=== PATIENT | male | born 1955 | race Caucasian/White ===

== ENCOUNTER 2016-05-30 22:58 | Emergency (ER) | payer BC ==
[~2016-05-30] VITALS: Ht 182.9 cm; Wt 104.3 kg
--- NOTE | 2016-05-30 23:04 | ED.ADGEN ---
Past History Past Medical History: CAD, Diabetes, High Cholesterol, Heart Disease, Hypertension Past Surgical History: Angioplasty, Other Adult General Chief Complaint Chief Complaint ".. I was just siting around... and started getting this really heavy .. aching chest pain.. a 11/02.. it radiated into my Lt shoulder.. I was really sweating.. I did take two nitro .. it helped .. but it has never gone away....I had Stents in [address] Rodriguez....".. " I get all my cardiac care at .. and that where I want to be transfer....." HPI HPI Patient is a 60 year old male who presents with above hx and complaints of central chest pain which radiates to left shoulder and arm. Patient states acute onset of pain at 2100 hrs. tonight. Has had mild resolution with 2 nitroglycerin. Pain has persisted at least 5 out of 10 lower since 2100 hrs. Patient did have since [place] [address] Rodriguez. Patient is a diabetic, has hypertension, elevated cholesterol. Pt. normally follow s with Dr. Alford and Dr. Rodriguez for cardiology. No recent travel. No ill contacts. No change in meds. No history of bad food. No history of trauma. Review of Systems Review of Systems Constitutional: Denies fever or chills [] Eyes: Denies change in visual acuity, redness, or eye pain [] HENT: Denies nasal congestion or sore throat [] Respiratory: History of nonproductive cough and shortness of breath [] Cardiovascular: No additional information not addressed in HPI [] GI: Denies abdominal pain, , vomiting, bloody stools or diarrhea [] complaints of nausea : Denies dysuria or hematuria [] Musculoskeletal: Denies back pain or joint pain [] Integument: Denies rash or skin lesions [] Neurologic: Denies headache, focal weakness or sensory changes [] Endocrine: Denies polyuria or polydipsia [] Family History Family History Noncontributory Current Medications Current Medications Current Medications Medications (Trade) Dose Ordered Sig/Mariana Start Time Stop Time Status Last Admin Dose Admin Aspirin (Children'S Aspirin) 324 mg 1X ONCE 05/30/16 23:45 05/30/16 23:46 DC 05/30/16 23:44 324 MG Enoxaparin Sodium (Lovenox 100mg Syringe) 100 mg 1X ONCE 05/30/16 23:15 05/30/16 23:45 DC 05/30/16 23:15 100 MG Lactated Ringer's (Iv Lactated Ringers) 1,000 ml @ 1,000 mls/hr ONCE ONCE 05/30/16 23:42 05/31/16 00:41 DC 05/30/16 23:42 1,000 MLS/HR Magnesium Sulfate (Magnesium Sulfate PREMIX 2GM) 50 ml @ 25 mls/hr 1X ONCE 05/31/16 00:30 05/31/16 02:29 05/31/16 00:30 25 MLS/HR Metoprolol Tartrate 5 mg 5 mg 1X ONCE 05/31/16 00:30 05/31/16 01:03 DC 05/31/16 00:30 5 MG Morphine Sulfate (Morphine 10mg Syringe) 10 mg 1X ONCE 05/31/16 00:30 05/31/16 00:31 DC Morphine Sulfate (Morphine 2mg Syringe) 2 mg 1X ONCE 05/30/16 23:30 05/30/16 23:43 DC 05/30/16 23:30 2 MG Nitroglycerin (Nitro-Bid Oint) 1 inch 1X ONCE 05/30/16 23:15 05/30/16 23:43 DC 05/30/16 23:15 1 INCH Ondansetron HCl 8 mg 8 mg 1X ONCE 05/30/16 23:30 05/30/16 23:43 DC 05/30/16 23:30 8 MG Allergies Allergies Allergies Coded Allergies Type Severity Reaction Last Updated Verified No Known Drug Allergies 05/30/16 No Physical Exam Physical Exam Constitutional: in acute distress, non-toxic appearance. [] HENT: Normocephalic, atraumatic, bilateral external ears normal, oropharynx moist, no oral exudates, nose normal. [] Eyes: PERRLA, EOMI, conjunctiva normal, no discharge. [] Neck: Normal range of motion, no tenderness, supple, no stridor. [] Cardiovascular: Tachycardia Heart rate regular rhythm, no murmur, PMI to the left Lungs & Thorax: Bilateral breath sounds equal apex with scattered wheezes and some basilar crackles on left on auscultation [] Abdomen: Bowel sounds normal, soft, no tenderness, no masses, no pulsatile masses. Obese. Skin: Warm, diaphoretic, no erythema, no rash. [] Back: No tenderness, no CVA tenderness. [] Extremities: No tenderness, no cyanosis, no clubbing, ROM intact, trace ankle edema. No cording appreciated Neurologic: Alert and oriented X 3, normal motor function, normal sensory function, no focal deficits noted. [] Psychologic: Affect anxious, judgement normal, mood normal. [] Current Patient Data Vital Signs Vital Signs Date Time Temp Pulse Resp B/P Pulse Ox O2 Delivery O2 Flow Rate FiO2 05/31/16 00:30 111 126/74 05/31/16 00:30 26 93 Nasal Cannula Lab Results Laboratory Tests Test 05/30/16 23:25 White Blood Count 9.8x10^3/uL (4.0-11.0) Red Blood Count 4.87x10^6/uL (4.30-5.70) Hemoglobin 14.3g/dL (13.0-17.5) Hematocrit 42.8% (39.0-53.0) Mean Corpuscular Volume 88fL (79-100) Mean Corpuscular Hemoglobin 29pg (25-35) Mean Corpuscular Hemoglobin Concent 33g/dL (31-37) Red Cell Distribution Width 13.6% (11.5-14.5) Platelet Count 238x10^3/uL (140-400) Neutrophils (%) (Auto) 65% (31-73) Lymphocytes (%) (Auto) 24% (24-48) Monocytes (%) (Auto) 9% (0-9) Eosinophils (%) (Auto) 2% (0-3) Basophils (%) (Auto) 1% (0-3) Neutrophils # (Auto) 6.3x10^3uL (1.8-7.7) Lymphocytes # (Auto) 2.3x10^3/uL (1.0-4.8) Monocytes # (Auto) 0.9x10^3/uL (0.0-1.1) Eosinophils # (Auto) 0.2x10^3/uL (0.0-0.7) Basophils # (Auto) 0.1x10^3/uL (0.0-0.2) Prothrombin Time 10.4SEC (9.4-11.4) Prothrombin Time INR 1.0 (0.9-1.1) PTT 22SEC (23-33) L D-Dimer (Lorraine) < 0.19mg/L (0.00-0.50) Sodium Level 139mmol/L (136-145) Potassium Level 3.7mmol/L (3.5-5.1) Chloride Level 103mmol/L (98-107) Carbon Dioxide Level 25mmol/L (21-32) Anion Gap 11 (6-14) Blood Urea Nitrogen 14mg/dL (8-26) Creatinine 1.1mg/dL (0.7-1.3) Estimated GFR (Cockcroft-Gault) 68.5 Glucose Level 382mg/dL (70-99) H Calcium Level 8.8mg/dL (8.5-10.1) Magnesium Level 1.7mg/dL (1.8-2.4) L Total Bilirubin 0.3mg/dL (0.2-1.0) Direct Bilirubin 0.1mg/dL (0.0-0.2) Aspartate Amino Transferase (AST) 18U/L (15-37) Alanine Aminotransferase (ALT) 42U/L (16-63) Alkaline Phosphatase 113U/L (46-116) Creatine Kinase 135U/L (39-308) Creatine Kinase MB (Mass) 1.8ng/mL (0.0-3.6) Creatine Kinase MB Relative Index 1.3% (0-4) Troponin I Quantitative < 0.017ng/mL (0-0.055) NB-Erh-Q-Type Natriuretic Peptide 18pg/mL (0-124) Total Protein 7.0g/dL (6.4-8.2) Albumin 3.8g/dL (3.4-5.0) Amylase Level 19U/L (25-115) L Lipase 197U/L (73-393) EKG EKG My interpretation of EKG shows a sinus tachycardia at 111. Regional PVC. No findings acute STEMI. Repeat EKG shows a sinus tachycardia 108 with no acute findings of STEMI or contralateral changes. [] Radiology/Procedures Radiology/Procedures My interpretation of chest x-ray shows basilar atelectasis versus infiltrate on left base. [] Course & Med Decision Making Course & Med Decision Making Pertinent Labs and Imaging studies reviewed. 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 Will accept patient in transfer take for further evaluation and treatment. [] Final Impression Final Impression 1. Chest Pain 2. DM-elevated glucose 3. HTN 4. Hx. CADz.[] 5. Hypo-magnesium 6. Tachycardia Problems: Dragon Disclaimer Dragon Disclaimer This electronic medical record was generated, in whole or in part, using a voice recognition dictation system. AUGIE CARRION MD May 30, 2016 23:04
[2016-05-30] MEDS ORDERED: IV RINGERS SOLUTION,LACTATED 1,000 ML IV SCH (23:15)
[2016-05-30] MEDS ORDERED: NITROGLYCERIN OINT 1 GM PACKET. TP ONE (23:15)
[2016-05-30] MEDS ORDERED: ENOXAPARIN ** NOTE DOSE ** SYRINGE SQ ONE (23:15)
[2016-05-30] MEDS ORDERED: MORPHINE SULFATE 2 MG/ML DISP.SYRIN. IV ONE (23:30)
[2016-05-30] MEDS ORDERED: ONDANSETRON PF 4 MG/2 ML VIAL. IV ONE (23:30)
[2016-05-30 23:41] LABS: BASO # 0.1 x10^3/uL (0.0-0.2); BASO % 1 % (0-3); EOS # 0.2 x10^3/uL (0.0-0.7); EOS % 2 % (0-3); HEMATOCRIT 42.8 % (39.0-53.0); HEMOGLOBIN 14.3 g/dL (13.0-17.5); LYMPH # 2.3 x10^3/uL (1.0-4.8); LYMPH % 24 % (24-48); MEAN CORPUSCULAR HEMOGLOBIN 29 pg (25-35); MEAN CORPUSCULAR HGB CONC 33 g/dL (31-37); MEAN CORPUSCULAR VOLUME 88 fL (79-100); MONO # 0.9 x10^3/uL (0.0-1.1); MONO % 9 % (0-9); NEUT # 6.3 x10^3uL (1.8-7.7); NEUT % 65 % (31-73); PLATELET COUNT 238 x10^3/uL (140-400); RED BLOOD COUNT 4.87 x10^6/uL (4.30-5.70); RED CELL DISTRIBUTION WIDTH 13.6 % (11.5-14.5); WHITE BLOOD COUNT 9.8 x10^3/uL (4.0-11.0)
[2016-05-30] MEDS ORDERED: IV RINGERS SOLUTION,LACTATED 1,000 ML IV ONE (23:42)
[2016-05-30] MEDS ORDERED: ASPIRIN 81 MG TAB.CHEW PO ONE (23:45)
[2016-05-31 00:01] LABS: ALBUMIN 3.8 g/dL (3.4-5.0); CALCIUM 8.8 mg/dL (8.5-10.1); CREATININE 1.1 mg/dL (0.7-1.3); DIRECT BILIRUBIN 0.1 mg/dL (0.0-0.2); GFR 68.5; MAGNESIUM 1.7 mg/dL (1.8-2.4); POTASSIUM 3.7 mmol/L (3.5-5.1); TOTAL BILIRUBIN 0.3 mg/dL (0.2-1.0)
[2016-05-31] MEDS ORDERED: METOPROLOL TARTRATE 5 MG/5 ML VIAL. IV ONE (00:30)
[2016-05-31] MEDS ORDERED: MORPHINE SULFATE 10 MG/ML SYRINGE. SQ ONE (00:30)
[2016-05-31] MEDS ORDERED: MAGNESIUM SULFATE 2GM 50 ML IV ONE (00:30)
[2016-05-31 01:00] VITALS: BP 129/69
--- NOTE | 2016-05-31 01:10 | EKG ---
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
--- NOTE | 2016-05-31 01:11 | EKG ---
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
--- NOTE | 2016-05-31 07:51 | RAD ---
2 view CXR: Clinical indications: Chest pain today. Comparison: December 20, 2007. Findings: There is chronic scarring within the lingula. There is new finding of posterior left lung base atelectasis. The right lung field is clear. No pleural effusion or pneumothorax is seen. The heart size, pulmonary vasculature, mediastinum and both jovan are unremarkable. The osseous structures appear intact. Impression: New left lung base atelectasis..
[2016-05-31 12:06] LABS: THYROID STIM HORMONE (TSH) 4.583 uIU/mL (0.358-3.740)
== END 2016-05-31 01:10 | disposition short-term general hospital (02) ==
LOC: ER 22:58
DX: R07.89 Other chest pain (principal); E11.9 Type 2 diabetes mellitus without complications; R73.02 Impaired glucose tolerance (oral); I25.10 Atherosclerotic heart disease of native coronary artery without angina pectoris; I11.9 Hypertensive heart disease without heart failure; E78.00 Pure hypercholesterolemia, unspecified; E83.42 Hypomagnesemia; R00.0 Tachycardia, unspecified
CPT/HCPCS: 36415; 71020; 80048; 80061; 80076; 82150; 82553; 83690; 83735; 83880; 84443; 84484; 85027; 85379; 85610; 85730; 93005; 96361; 96365; 96372; 96375; 96376; 99285; J1650; J2270; J2405; J3475; J3490; J7120

== ENCOUNTER → 2018-04-19 | Outpatient (CLI) | payer BC ==
[~2018-04-19] MED LIST: AMOX1TAB11 PO; ASPI325T8 PO; ASPI81TA50 PO; CALC200T23 PO; CARV12.547 PO; CLOP75TA PO; INSU200I4 SQ; ISOS30TA4 PO; LACT1CAP19 PO; LATA2.5D3 EACHEYE; LIRA0.6P2 SQ; LOSA100T14 PO; MECL25TA3 PO; METF500T9 PO; PRAV20TA2 PO
--- NOTE | 2018-04-19 09:46 | RAD ---
EXAM: Head CT without contrast. HISTORY: Dizziness. Altered gait. TECHNIQUE: Computed tomographic images of the head were obtained without contrast. *One or more of the following individualized dose reduction techniques were utilized for this examination: 1. Automated exposure control. 2. Adjustment of the mA and/or kV according to patient size. 3. Use of iterative reconstruction technique. COMPARISON: MRI dated 02/22/2008. FINDINGS: There is no acute or subacute extra-axial or intraparenchymal hemorrhage. There is no mass effect or midline shift. There is no hydrocephalus. There are areas of decreased attenuation within the cerebral white matter, nonspecific and likely related to chronic small vessel disease. There is a small calcific lesion within the left frontal lobe. There is a small focus of hypodensity within the right quincy, likely due to skull base artifact. There is moderate mucosal thickening involving the visualized left maxillary sinus. There is mild to moderate bilateral ethmoid sinus and mild sphenoid sinus mucosal thickening. The mastoid air cells are clear. IMPRESSION: 1. No acute intracranial finding. Note is made that MRI is more sensitive for acute infarction. 2. Subtle areas of hypodensity within the cerebral white matter, most commonly due to chronic small vessel disease. Electronically signed by: Caro Jackson MD (04/19/2018 9:43 AM) [facility]
== END | disposition home or self-care (01) ==
LOC: CT 09:11
PROVIDERS: ATTEND Physician Assistant
DX: G93.89 Other specified disorders of brain (principal); R90.82 White matter disease, unspecified
CPT/HCPCS: 70450

== ENCOUNTER 2018-04-23 16:19 | Inpatient (IN) | payer BC ==
[~2018-04-23] VITALS: Ht 182.9 cm; Wt 103.0 kg
[2018-04-23 16:36] VITALS: BP 152/88
[2018-04-23] MEDS ORDERED: CLOP75TA PO (17:26)
[2018-04-23] MEDS ORDERED: ISOS30TA4 PO (17:26)
[2018-04-23] MEDS ORDERED: METF500T9 PO (17:26)
[2018-04-23] MEDS ORDERED: CARV12.547 PO (17:26)
[2018-04-23] MEDS ORDERED: LIRA0.6P2 SQ (17:26)
[2018-04-23] MEDS ORDERED: INSU200I4 SQ (17:26)
[2018-04-23] MEDS ORDERED: ASPI81TA50 PO (17:26)
[2018-04-23] MEDS ORDERED: LOSA100T14 PO (17:26)
[2018-04-23] MEDS ORDERED: PRAV20TA2 PO (17:26)
[2018-04-23] MEDS ORDERED: ZOLPIDEM 5 MG TABLET. PO PRN (18:30)
[2018-04-23 18:55] LABS: BASO # 0.1 x10^3/uL (0.0-0.2); BASO % 1 % (0-3); EOS # 0.3 x10^3/uL (0.0-0.7); EOS % 3 % (0-3); HEMATOCRIT 49.3 % (39.0-53.0); HEMOGLOBIN 16.7 g/dL (13.0-17.5); LYMPH # 2.2 x10^3/uL (1.0-4.8); LYMPH % 21 % (24-48); MEAN CORPUSCULAR HEMOGLOBIN 29 pg (25-35); MEAN CORPUSCULAR HGB CONC 34 g/dL (31-37); MEAN CORPUSCULAR VOLUME 87 fL (79-100); MONO # 0.9 x10^3/uL (0.0-1.1); MONO % 9 % (0-9); NEUT # 6.6 x10^3uL (1.8-7.7); NEUT % 65 % (31-73); PLATELET COUNT 280 x10^3/uL (140-400); RED BLOOD COUNT 5.68 x10^6/uL (4.30-5.70); RED CELL DISTRIBUTION WIDTH 13.5 % (11.5-14.5); WHITE BLOOD COUNT 10.1 x10^3/uL (4.0-11.0)
[2018-04-23] MEDS ORDERED: DEXTROSE 50% 25 GM / 50ML DISP.SYRIN. IV PRN (19:00)
[2018-04-23 19:07] LABS: ALBUMIN 3.7 g/dL (3.4-5.0); CALCIUM 9.2 mg/dL (8.5-10.1); POTASSIUM 4.3 mmol/L (3.5-5.1); TOTAL BILIRUBIN 0.3 mg/dL (0.2-1.0); TOTAL PROTEIN 7.3 g/dL (6.4-8.2)
[2018-04-23] MEDS ORDERED: AMOX1TAB11 PO (19:16)
[2018-04-23] MEDS ORDERED: LATA2.5D3 EACHEYE (19:16)
[2018-04-23] MEDS ORDERED: MECL25TA3 PO (19:16)
[2018-04-23 19:20] VITALS: BP 125/78
[2018-04-23] MEDS ORDERED: MECLIZINE 12.5 MG TABLET. PO PRN (19:30)
[2018-04-23] MEDS: AMOXICILLIN/K CLAV 875/125MG TABLET. PO SCH (20:32)
[2018-04-23] MEDS: LACTOBACILLUS RHAMNOSUS GG 1 CAPSULE. PO SCH (20:32)
[2018-04-23] MEDS: LATANOPROST 0.005% OPHTH SOLUTION 2.5ML BOTTLE. OU SCH (20:32)
[2018-04-23 23:30] VITALS: BP 124/70
--- NOTE | 2018-04-24 00:51 | CONS ---
DATE OF CONSULTATION: 04/23/2018 NEUROLOGY CONSULTATION REFERRING PHYSICIAN: Dr. Alford. REASON FOR CONSULTATION: Acute stroke. HISTORY OF PRESENT ILLNESS: This is a 62-year-old right-handed male who presented with a chief complaint of 6-day history of dizziness described as "fogging and impaired balance." According to the patient, last Thursday, the patient felt dizzy with left-sided headaches, but he denies nausea, vomiting, weakness, numbness, chest pain, shortness of breath or palpitation. On 04/19/2018, the patient had a nonenhanced head CT scan, which revealed no acute intracranial process, but consistent with small vessel ischemic changes. A brain MRI today revealed evidence of acute ischemic changes or infarct confined to the right aspect of the quincy and left frontal lobe. Therefore, the patient was admitted for further evaluation. PAST MEDICAL HISTORY: Significant for hypertension, diabetes mellitus, myocardial infarction x 2, hyperlipidemia, difficulty falling asleep, and glaucoma. PAST SURGICAL HISTORY: Cardiac catheterization, status post 2 stents placement. SOCIAL HISTORY: The patient is . He quit smoking a long time ago. He denies alcohol drinking or illicit drug use. CURRENT HOME MEDICATIONS: Aspirin 81 mg daily, carvedilol 12.5 mg daily, Plavix 75 mg p.o. daily, insulin, isosorbide 1 tablet daily, latanoprost 2.5 mL drops, Victoza, losartan 100 mg daily, meclizine 25 mg t.i.d. p.r.n., pravastatin 20 mg daily. ALLERGIES: No known drug allergies. FAMILY HISTORY: Noncontributory. PHYSICAL EXAMINATION: GENERAL: Obese male, not in acute distress. He weighs 227 pounds. VITAL SIGNS: Afebrile, blood pressure 125/78, respiratory rate 20, pulse is 95, temperature 98.2, oxygen saturation 93% on room air. HEENT: Normocephalic, atraumatic, otherwise unremarkable. NECK: Supple. Negative for carotid bruit, lymphadenopathy, and thyromegaly. LUNGS: Clear to A and P. CARDIOVASCULAR: Regular rate and rhythm. Normal S1, S2. There is no S3, S4, or murmur. ABDOMEN: Soft. Bowel sounds positive. EXTREMITIES: Negative for cyanosis, clubbing, or pitting edema. NEUROLOGICAL: 1. Mental Status: The patient is alert and oriented x 3. Speech is fluent. There is no language dysfunction. Memory, judgment, and abstract thinking are normal. The patient denies hallucination or delusion. 2. Cranial Nerves: Visual rosales are full. The pupils are reactive to light and accommodation. The extraocular movements are intact. There is no nystagmus. There is no facial motor or sensory deficit. Hearing appears to be intact. The palate is elevated symmetrically. Sternocleidomastoid muscles are powerful bilaterally. The patient shrugs his shoulders symmetrically and protrudes his tongue in the midline without fasciculation or atrophy. 3. Motor: No focal muscle bulk was seen. The tone is normal. The strength is 5/5 throughout. 4. Sensory Examination: Reveals normal pinprick, light touch, vibratory and position senses. Deep tendon reflexes are symmetric and hypoactive with absent Achilles responses. Gait and stance is steady. LABORATORY DATA: CBC revealed white blood cells of 10.1 thousand, hemoglobin 16.7, hematocrit 49.3, platelet count 280,000. Chemistry revealed sodium of 138, potassium of 4.3, chloride 101, CO2 is 29, BUN 19, creatinine 1, glucose is 323. IMPRESSION: 1. A 6-day history of impaired balance with abnormal brain MRI consistent with acute infarct over the left frontal region and right aspect of the quincy without significant residual neurologic deficit. 2. Multiple medical problems to include hypertension, hyperlipidemia, diabetes mellitus, coronary artery disease status post 2 stents placement, and glaucoma. RECOMMENDATIONS: 1. Stroke workup includes echocardiogram and carotid Doppler study, fasting lipid profile. 2. We will start the patient on aspirin 325 mg along with Plavix for now. 3. Physical therapy evaluation. M Kip PORTILLO MD DR: KAI/leiws JOB#: [id number] / [id number]
[2018-04-24 00:58] LABS: COLOR,URINE YELLOW
[2018-04-24 00:59] LABS: BACTERIA,URINE FEW /HPF (0-FEW); BILIRUBIN,URINE NEG (NEG); CLARITY,URINE CLEAR; GLUCOSE,URINE 500 mg/dL (NEG); NITRITE,URINE NEG (NEG); RBC,URINE 0 /HPF (0-2); SQUAMOUS EPITHELIAL CELL,UR OCC /LPF; UROBILINOGEN,URINE 0.2 mg/dL (0.2 mg/dL); WBC,URINE 0 /HPF (0-4)
[2018-04-24 06:42] VITALS: BP 131/83
[2018-04-24] MEDS ORDERED: ASPIRIN 81 MG TAB.CHEW PO SCH (08:00)
[2018-04-24] MEDS: AMOXICILLIN/K CLAV 875/125MG TABLET. PO SCH (08:57)
[2018-04-24] MEDS: ASPIRIN 325 MG TABLET PO SCH (08:58)
[2018-04-24] MEDS: CARVEDILOL 12.5 MG TABLET PO SCH ×2 (08:58→17:25)
[2018-04-24] MEDS: metFORMIN XR 500 MG TAB.ER.24H PO SCH ×2 (08:58→17:24)
[2018-04-24] MEDS: LACTOBACILLUS RHAMNOSUS GG 1 CAPSULE. PO SCH ×2 (08:59→21:30)
[2018-04-24] MEDS ORDERED: NON FORMULARY ITEM (Liraglutide (Victoza 3-Pak) 1.2 MG) SQ SCH (09:00)
[2018-04-24] MEDS: LOSARTAN 50 MG TABLET. PO SCH (09:02)
[2018-04-24] MEDS: ISOSORBIDE MONONITRATE ER 30 MG TAB.ER.24H PO SCH (09:02)
[2018-04-24] MEDS: PRAVASTATIN 20 MG TABLET. PO SCH (09:02)
[2018-04-24] MEDS: CLOPIDOGREL BISULFATE 75 MG TABLET PO SCH (09:02)
[2018-04-24] MEDS: INSULIN GLARGINE 300 UNITS/3 ML INSULN.PEN. SQ SCH (09:06)
--- NOTE | 2018-04-24 10:06 | RAD ---
CHEST PA LATERAL Technique: PA and lateral views of the chest were obtained. Clinical History: short of breath Comparison: May 31, 2016. Findings: The heart and pulmonary vasculature appear within normal limits. There is linear opacities in the lung bases and blunting of the left costophrenic angle. The pleural margins are clear. Impression: Mild left effusion and basal infiltrates could be mild CHF or pneumonia. Electronically signed by: Dante Zelaya III, MD (04/24/2018 10:03 AM) [facility]
--- NOTE | 2018-04-24 10:10 | RAD ---
Bilateral Duplex Carotid Ultrasound Indication: DIZZINESS X'S 1 WEEK. PT STATES HE ALSO WAS HAVING A HEADACHE 3 DAYS PRIOR TO DIZZINESS SYMPTOMS. PT IS A DIABETIC AND HAS HYPERTENSION. Procedure: Two dimensional, duplex and color-flow images and spectral analysis are obtained of the carotid arteries bilaterally. Vertebral arteries are also imaged. Findings: Right Carotid: The 2 D images demonstrate minimal plaquing with no evidence of significant narrowing. The color images are normal without turbulence or jet effect. On the right ICA peak systolic velocity is 73 cm/sec. I The ICA/CCA ratio is 0.8 . Left Carotid: The 2 D images demonstrate mild plaquing with no evidence of significant narrowing. The color images are normal without turbulence or jet effect. On the left ICA peak systolic velocity is 73 cm/sec. The ICA/CCA ratio is 1.0. Vertebral Arteries: The right vertebral artery is normal with normal direction of flow. The left vertebral artery is normal with normal direction of flow. Impression: Normal carotid ultrasound with no hemodynamically significant stenosis. PQRS Compliance Statement - Stenosis calculations for CT, MR and conventional angiography are based upon measurement of the distal ICA diameter in accordance with the NASCET methodology. Stenosis calculations for carotid ultrasound studies are derived from validated velocity criteria which are known to correlate with the NASCET methodology. Electronically signed by: Dante Zelaya III, MD (04/24/2018 10:07 AM) [facility]
[2018-04-24 11:13] VITALS: BP 142/85
[2018-04-24] MEDS: INSULIN LISPRO 300 UNITS/3 ML INSULN.PEN. SQ SCH ×4 (12:16→17:30)
[2018-04-24 15:28] VITALS: BP 135/81
[2018-04-24] MEDS ORDERED: AZITHROMYCIN 500 MG in IV NORMAL SALINE 250ML 250 ML IV SCH (18:00)
[2018-04-24 20:00] VITALS: BP 124/74
[2018-04-24] MEDS: LATANOPROST 0.005% OPHTH SOLUTION 2.5ML BOTTLE. OU SCH (21:30)
--- NOTE | 2018-04-24 21:38 | PN ---
DATE: SUBJECTIVE: The patient denies any new medical or neurological complaints. He eats, drinks, and walks without assistance. He denies chest pain, shortness of breath, palpitation, weakness, or paresthesia. OBJECTIVE: GENERAL: Moderately obese male not in acute distress. VITAL SIGNS: Blood pressure 131/83, respiratory rate is 20, pulse is 88 and regular, temperature 98.1, oxygen saturation is 92% on room air. HEENT: Normocephalic, atraumatic, otherwise unremarkable. NECK: Supple. Negative for carotid bruit, lymphadenopathy, or thyromegaly. LUNGS: Clear to A and P. CARDIOVASCULAR: Regular rate and rhythm. Normal S1, S2. There is no S3, S4, or murmur. ABDOMEN: Soft. Bowel sounds positive. EXTREMITIES: Negative for cyanosis, clubbing, pitting edema. NEUROLOGICAL: Mental Status: The patient is alert and oriented x 3. The speech is fluent. There is no language dysfunction. Memory, judgment, and abstract thinking are normal. The patient denies hallucination or delusion. Cranial nerves are intact. No focal motor or sensory deficit. Deep tendon reflexes are symmetric and hypoactive with absent Achilles responses. Gait and coordination are normal. DIAGNOSTIC DATA: Carotid Doppler study revealed normal study. Echocardiogram is pending. IMPRESSION: 1. Status post acute stroke without significant neurological deficit. 2. Multiple stroke risk factors including hyperlipidemia, hypertension, diabetes mellitus, coronary artery disease. RECOMMENDATIONS: 1. Await for echocardiogram. 2. Continue with current management. 3. Physical therapy evaluation. M Kip PORTILLO MD DR: KAI/lewis JOB#: [id number] / [id number]
[2018-04-24 22:15] VITALS: BP 112/63
--- NOTE | 2018-04-25 00:03 | PN ---
DATE: SUBJECTIVE: A 62-year-old male was admitted yesterday with new onset of stroke, left frontal and quincy infarction ____ evaluation; however, the patient did come in. He was seen by Neurology. PHYSICAL EXAMINATION: VITAL SIGNS: Blood pressure brought down to 135/80, respiratory rate 20, pulse 97, afebrile. GENERAL: The patient is alert and oriented, oxygen saturation down to 91%. IMAGING STUDIES: Carotid Dopplers were unremarkable. The patient's MRI scan was done as an outpatient. The patient's chest x-ray (NC), mild left effusion, basilar infiltrates could be mild CHF or pneumonia. MAREK CASTILLO MD DR: MARSHA/lewis JOB#: [id number] / [id number]
[2018-04-25 05:32] VITALS: BP 126/88
[2018-04-25 05:35] LABS: HEMOGLOBIN A1C 10.5 % (4.8-5.6)
[2018-04-25] MEDS: PRAVASTATIN 20 MG TABLET. PO SCH (07:55)
[2018-04-25] MEDS: metFORMIN XR 500 MG TAB.ER.24H PO SCH (07:55)
[2018-04-25] MEDS: CLOPIDOGREL BISULFATE 75 MG TABLET PO SCH (07:55)
[2018-04-25] MEDS: ASPIRIN 325 MG TABLET PO SCH (07:55)
[2018-04-25] MEDS: LACTOBACILLUS RHAMNOSUS GG 1 CAPSULE. PO SCH ×2 (07:56→20:25)
[2018-04-25] MEDS: ISOSORBIDE MONONITRATE ER 30 MG TAB.ER.24H PO SCH (07:56)
[2018-04-25] MEDS: LOSARTAN 50 MG TABLET. PO SCH (07:56)
[2018-04-25] MEDS: CARVEDILOL 12.5 MG TABLET PO SCH ×2 (07:57→17:16)
[2018-04-25] MEDS: INSULIN GLARGINE 300 UNITS/3 ML INSULN.PEN. SQ SCH ×2 (07:57→20:26)
[2018-04-25] MEDS: INSULIN LISPRO 300 UNITS/3 ML INSULN.PEN. SQ SCH ×6 (07:57→17:18)
[2018-04-25] MEDS ORDERED: ACETAMINOPHEN 500 MG TABLET PO ONE (10:06)
[2018-04-25] MEDS ORDERED: ACETAMINOPHEN 500 MG TABLET PO PRN (10:15)
[2018-04-25 10:51] VITALS: BP 104/62
[2018-04-25] MEDS ORDERED: CONTRAST GIVEN MC PRN (12:30)
[2018-04-25] MEDS ORDERED: IOHEXOL 350 MG/ML 100 ML VIAL. IV ONE (12:30)
[2018-04-25 13:54] LABS: CALCIUM 8.9 mg/dL (8.5-10.1); CREATININE 1.1 mg/dL (0.7-1.3); GFR 68.1
--- NOTE | 2018-04-25 15:14 | RAD ---
Examination: CT angiography chest HISTORY: History of pneumonia, sepsis, chest discomfort COMPARISON: None available TECHNIQUE: Axial CT and radiographic images of chest were performed with IV contrast. Coronal and sagittal 3-D MIP reformats are performed Exposure: One or more of the following individualized dose reduction techniques were utilized for this examination: 1. Automated exposure control 2. Adjustment of the mA and/or kV according to patient size 3. Use of iterative reconstruction technique FINDINGS: The central airways are patent. The heart size grossly appears unremarkable. The caliber of the aorta grossly appears unremarkable. Mild aortic atherosclerosis. Coronary artery calcium lesions identified. There is no contrast within the pulmonary arteries for evaluation of the pulmonary arteries. Small right paratracheal lymph node identified measuring 1 cm in transverse dimension. Mild lung emphysematous changes. There is linear bibasilar lung airspace opacity likely atelectasis or infiltrates. No evidence of pleural effusion or pneumothorax. There is diffuse decreased attenuation noted in the liver likely hepatic steatosis. The visualized spleen, adrenals grossly appears unremarkable. Moderate degenerative changes thoracic spine. IMPRESSION: 1. Nondiagnostic examination for pulmonary embolism as there is not enough contrast within the pulmonary arteries and its branches. 2. Coronary artery calcifications. 3. Linear bibasilar lung airspace opacities likely atelectasis or infiltrates. 4. Hepatic steatosis. Electronically signed by: Noah Jacobs MD (04/25/2018 3:12 PM) [facility]
[2018-04-25 15:56] VITALS: BP 142/88
[2018-04-25] MEDS: CEFEPIME HCL 1 GM in IV NORMAL SALINE 50ML 50 ML IV SCH ×2 (16:21→21:46)
[2018-04-25] MEDS ORDERED: CALCIUM CARBONATE 500 MG TAB.CHEW PO PRN ×2 (16:30)
[2018-04-25] MEDS ORDERED: MAG HYDROX/AL HYDROX/SIMETH 30 ML ORAL.SUSP PO PRN (16:30)
[2018-04-25 19:40] VITALS: BP 144/83
[2018-04-25] MEDS: LATANOPROST 0.005% OPHTH SOLUTION 2.5ML BOTTLE. OU SCH (20:25)
--- NOTE | 2018-04-25 22:29 | PN ---
DATE: 04/25/2018 SUBJECTIVE: The patient denies any new neurological complaints; however, he continues to complain of haziness in his head when he walks. He denies chest pain, shortness of breath or palpitation, dysarthria, dysphagia or paraesthesia. Initial chest x-ray revealed a possible left pleural effusion or basal infiltrate suggestive of possible mild congestive heart failure versus pneumonia. The patient has been on antibiotics since admission. OBJECTIVE: GENERAL: Well-developed, well-nourished male, not in acute distress. VITAL SIGNS: Blood pressure 104/62, respiratory rate 18, pulse is 86, temperature 97.6, oxygen saturation 95% on room air. HEENT: Normocephalic, atraumatic, otherwise unremarkable. NECK: Supple. Negative for carotid bruit, lymphadenopathy, JVD or thyromegaly. LUNGS: Clear. No wheezing or rales. CARDIOVASCULAR: Regular rhythm, normal S1, S2. There is no S3, S4, or murmur. ABDOMEN: Soft. Bowel sounds positive. EXTREMITIES: Negative for cyanosis, clubbing or pitting edema. NEUROLOGICAL EXAM: Mental Status: The patient is alert and oriented x 3. Speech is fluent. There is no language dysfunction. Memory, judgment, and abstract thinking are normal. The patient denies hallucination or delusion. Cranial nerves are intact. No focal motor or sensory deficit. Deep tendon reflexes were symmetric and hypoactive with absent Achilles responses. Gait: The patient's stance is steady. The patient walks without assistance. DIAGNOSTIC DATA: Echocardiogram is pending and carotid Doppler study is normal bilaterally. IMPRESSION: 1. Status post acute stroke without significant neurological deficit. 2. Possible basilar infiltrate or mild congestive heart failure on x-ray. 3. Multiple risk factors of stroke include diabetes mellitus, hypertension, hyperlipidemia, coronary artery disease, status post 2 stent placement and recent stroke. RECOMMENDATIONS: 1. Continue with current management as initiated by Dr. Alford. 2. Physical therapy has evaluated him. 3. We will follow up the patient in Neurology Clinic on outpatient basis after 2 weeks from discharge. M Kip PORTILLO MD DR: KAI/lewis JOB#: [id number] / [id number]
[2018-04-25 23:27] VITALS: BP 164/81
--- NOTE | 2018-04-25 23:32 | PN ---
DATE: 04/25/2018 SUBJECTIVE: A 62-year-old male. He has had bilateral strokes, new onset. The patient also has a pneumonic process, and we are trying to get him evaluated for that. Echocardiogram is still pending. We will continue with IV antibiotic therapy and do a CTA on him. His lactic acid is still elevated at 2.7, although clinically he looks much better. His dizziness is somewhat less prominent. OBJECTIVE: VITAL SIGNS: Blood pressure 104/62, respiratory rate 18, pulse 86, afebrile. GENERAL: The patient is alert and oriented. LUNGS: Diminished, primarily in the left lower lobe. CARDIOVASCULAR: Regular sinus rhythm, S1, S2, without murmur, rub, thrill, or extra heart sounds. ABDOMEN: Soft, nontender. The patient is still somewhat dizzy and will continue to be monitored. We will get a CTA and check for any other signs of infection in his lungs. IMPRESSION: Therefore of bilateral strokes, pneumonia of unspecified etiology, community acquired. MAREK CASTILLO MD DR: MARSHA/lewis JOB#: [id number] / [id number]
[2018-04-26] MEDS: CEFEPIME HCL 1 GM in IV NORMAL SALINE 50ML 50 ML IV SCH (05:47)
[2018-04-26 06:05] VITALS: BP 129/81
[2018-04-26 06:48] LABS: BASO # 0.1 x10^3/uL (0.0-0.2); BASO % 1 % (0-3); EOS # 0.3 x10^3/uL (0.0-0.7); EOS % 4 % (0-3); HEMATOCRIT 50.2 % (39.0-53.0); LYMPH % 23 % (24-48); MEAN CORPUSCULAR HEMOGLOBIN 29 pg (25-35); MEAN CORPUSCULAR HGB CONC 34 g/dL (31-37); MEAN CORPUSCULAR VOLUME 87 fL (79-100); MONO # 0.8 x10^3/uL (0.0-1.1); MONO % 10 % (0-9); NEUT # 5.2 x10^3uL (1.8-7.7); NEUT % 62 % (31-73); PLATELET COUNT 261 x10^3/uL (140-400); RED CELL DISTRIBUTION WIDTH 13.5 % (11.5-14.5); WHITE BLOOD COUNT 8.4 x10^3/uL (4.0-11.0)
[2018-04-26] MEDS: CLOPIDOGREL BISULFATE 75 MG TABLET PO SCH (08:01)
[2018-04-26] MEDS: LOSARTAN 50 MG TABLET. PO SCH (08:01)
[2018-04-26] MEDS: PRAVASTATIN 20 MG TABLET. PO SCH (08:01)
[2018-04-26] MEDS: LACTOBACILLUS RHAMNOSUS GG 1 CAPSULE. PO SCH (08:01)
[2018-04-26] MEDS: ASPIRIN 325 MG TABLET PO SCH (08:01)
[2018-04-26] MEDS: ISOSORBIDE MONONITRATE ER 30 MG TAB.ER.24H PO SCH (08:01)
[2018-04-26] MEDS: CARVEDILOL 12.5 MG TABLET PO SCH (08:03)
[2018-04-26] MEDS: INSULIN LISPRO 300 UNITS/3 ML INSULN.PEN. SQ SCH ×2 (08:08)
[2018-04-26] MEDS: INSULIN GLARGINE 300 UNITS/3 ML INSULN.PEN. SQ SCH (08:09)
--- NOTE | 2018-04-26 08:26 | CARD ---
MR#: [id number] Date of Study: 04/24/2018 Ordering Physician: Brianna PORTILLO, Referring Physician: MAREK CASTILLO Tech: Elaine Groves RDCS APPROVED REPORT EXAM: Two-dimensional and M-mode echocardiogram with Doppler and color Doppler. Other Information Quality : GoodHR: 97bpm Rhythm : NSRTechnically limited study due to body habitus. INDICATION CVA/TIA 2D DIMENSIONS Left Atrium(2D)3.8 (1.6-4.0cm)IVSd0.8 (0.7-1.1cm) Aortic Root(2D)3.2 (2.0-3.7cm)LVDd5.1 (3.9-5.9cm) LVOT Diameter2.5 (1.8-2.4cm)PWd0.9 (0.7-1.1cm) LVDs3.4 (2.5-4.0cm)FS (%) 33.8 % SV75.9 mlLVEF(%)62.4 (>50%) Aortic Valve AoV Peak Ranjan.104.2cm/sAoV VTI19.0cm AO Peak GR.4.3mmHgLVOT Peak Ranjan.90.2cm/s LVOT VTI 19.56cmAO Mean GR.3mmHg VINNY (VMAX)4.81dt1GHR (VTI)5.00cm2 Mitral Valve MV E Kcaiawsd52.4cm/sMV DECEL QNIC343ur MV A Irqxtzzs169.0cm/sE/A Ratio0.7 MV A Unypuikg019jr Tricuspid Valve TR P. Aoccprja462bs/sTR Peak Gr.14mmHg Pulmonary Vein S1 Tuguzlrw70.2cm/s LEFT VENTRICLE The left ventricle is normal size. There is normal left ventricular wall thickness. The left ventricu lar systolic function is normal and the ejection fraction is within normal range. EF 55% There is nor mal LV segmental wall motion. Transmitral Doppler flow pattern is Grade I-abnormal relaxation pattern . RIGHT VENTRICLE The right ventricle is normal size. There is normal right ventricular wall thickness. The right ventr icular systolic function is normal. ATRIA The left atrium is mildly dilated. The right atrium size is normal. The interatrial septum is intact with no evidence for an atrial septal defect or patent foramen ovale as noted on 2-D or Doppler imagi ng. AORTIC VALVE The aortic valve is normal in structure and function. Doppler and Color Flow revealed no significant aortic regurgitation. There is no significant aortic valvular stenosis. There is no aortic valvular v egetation. MITRAL VALVE The mitral valve is normal in structure and function. There is no evidence of mitral valve prolapse. There is no mitral valve stenosis. Doppler and Color-flow revealed trace mitral regurgitation. TRICUSPID VALVE The tricuspid valve is normal in structure and function. Doppler and Color Flow revealed trace tricus pid regurgitation. There is no tricuspid valve prolapse or vegetation. There is no tricuspid valve st enosis. PULMONIC VALVE The pulmonary valve is normal in structure and function. Doppler and Color Flow revealed trace pulmon ic valvular regurgitation. There is no pulmonic valvular stenosis. GREAT VESSELS The aortic root is normal in size. The IVC is normal in size and collapses >50% with inspiration. PERICARDIAL EFFUSION There is no pleural effusion. There is no evidence of significant pericardial effusion. Critical Notification Critical Value: Yes Response Time:30 seconds Report Read Back <Conclusion> The left ventricular systolic function is normal and the ejection fraction is within normal range. EF 55% There is normal LV segmental wall motion. Bubble study not performed. Signed by : Samson Martinez, Electronically Approved : 04/26/2018 08:26:02
[2018-04-26] MEDS ORDERED: ASPI325T8 PO (10:45)
[2018-04-26] MEDS ORDERED: INSU200I4 SQ (10:45)
[2018-04-26] MEDS ORDERED: LACT1CAP19 PO (10:45)
[2018-04-26] MEDS ORDERED: CALC200T23 PO (10:45)
[2018-04-26 10:46] VITALS: BP 128/81
--- NOTE | 2018-04-26 11:34 | DS ---
DATE OF DISCHARGE: 04/26/2018 HOSPITAL COURSE: This 62-year-old male who came in was having severe dizziness. Thorough workup demonstrated on an MRI with and without contrast that the patient had 2 new infarctions, one in his I believe left frontal lobe and one in his right side of his quincy. The patient also had a basilar infiltrate and was monitored carefully. There was also some possibility of CHF. The patient made good progress. His carotid Dopplers were unremarkable and he was also seen by Dr. Thomas in consultation. The patient made good progress. His sugars were being brought down by increasing his Lantus. He did have an elevated lactic acid to begin with and so complicating that, so he will be continued on oral antibiotics as an outpatient. 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 The patient will continue to be monitored carefully as an outpatient and make further evaluation on him as indicated. He will be on a diabetic diet, decrease activity and follow up accordingly as an outpatient. MAREK CASTILLO MD DR: MARSHA/lewis JOB#: [id number] / [id number]
--- NOTE | 2018-04-26 12:13 | PN ---
DATE: SUBJECTIVE: The patient denies any new medical or neurological complaints; however, he continues to have mild "foggy sensation" in his head and mild memory loss. OBJECTIVE: GENERAL: Well-developed and well-nourished male, not in acute distress. VITAL SIGNS: Blood pressure 129/81, respiratory rate 18, pulse is 94 and regular, temperature 97.8, and oxygen saturation 94% on room air. HEENT: Normocephalic, atraumatic, otherwise unremarkable. NECK: Supple. Negative for carotid bruit, lymphadenopathy or thyromegaly. LUNGS: Clear to A and P. CARDIOVASCULAR: Regular rate and rhythm, normal S1, S2. There is no S3, S4 or murmur. ABDOMEN: Soft. Bowel sounds positive. EXTREMITIES: Negative for cyanosis, clubbing or pitting edema. NEUROLOGIC: The patient is alert and oriented x 3. Speech is fluent. There is no language dysfunction. Otherwise unremarkable. Cranial nerves are intact. No focal motor or sensory deficit. Deep tendon reflexes were symmetric and active without pathology responses. Gait: The stance is steady. The patient walks in the room and halls without assistance. DIAGNOSTIC AND IMAGING DATA: Echocardiogram result is still pending. IMPRESSION: 1. Status post stroke without focal neurological deficit. 2. Possible basilar infiltrate or mild congestive heart failure, improved. 3. Multiple medical problems and multiple stroke risk factors include diabetes mellitus, hypertension, hyperlipidemia, and coronary artery disease. RECOMMENDATIONS: 1. We will continue with current management with aspirin and Plavix. 2. Follow up with me after 1 or 2 weeks and arrange for EEG on an outpatient basis. M Kip PORTILLO MD DR: KAI/lewis JOB#: [id number] / [id number]
[2018-04-27] MEDS ORDERED: metFORMIN XR 500 MG TAB.ER.24H PO SCH (17:00)
--- NOTE | 2018-04-28 13:35 | EKG ---
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
== END 2018-04-26 11:40 | disposition home or self-care (01) | DRG 871 ==
LOC: 1 SOUTH 16:19
PROVIDERS: ADMIT Family Medicine; ATTEND Family Medicine
DX: A41.9 Sepsis, unspecified organism (principal); I63.9 Cerebral infarction, unspecified; J18.9 Pneumonia, unspecified organism; E11.9 Type 2 diabetes mellitus without complications; E78.5 Hyperlipidemia, unspecified; H40.9 Unspecified glaucoma; I10 Essential (primary) hypertension; I25.10 Atherosclerotic heart disease of native coronary artery without angina pectoris; I25.2 Old myocardial infarction; Z79.899 Other long term (current) drug therapy; Z79.02 Long term (current) use of antithrombotics/antiplatelets; Z79.4 Long term (current) use of insulin; Z79.82 Long term (current) use of aspirin; Z86.73 Personal history of transient ischemic attack (TIA), and cerebral infarction without residual deficits; Z87.891 Personal history of nicotine dependence; Z95.5 Presence of coronary angioplasty implant and graft
CPT/HCPCS: 36415; 71046; 71275; 80048; 80053; 80061; 81001; 82550; 82947; 83036; 83605; 83880; 84145; 84484; 85025; 85379; 85610; 93005; 93306; 93880; J0456; J0692; J0696; J1815; J1956; J7050; Q9967; 92610; 97530

== ENCOUNTER 2020-09-19 12:14 | Emergency (ER) | payer BC ==
[~2020-09-19] VITALS: Ht 182.9 cm; Wt 108.6 kg
[~2020-09-19 12:14] MED LIST changes: -ISOS30TA4 PO; +ISOS30TA68 PO; +MECL-75 PO; -MECL25TA3 PO; +METF-658 PO; -METF500T9 PO
[2020-09-19 12:15] VITALS: BP 129/73
[2020-09-19] MEDS ORDERED: CEPH500T PO (13:04)
--- NOTE | 2020-09-19 13:06 | PHYS DOC ---
Past History Past Medical History: CAD, Diabetes, High Cholesterol, Heart Disease, Hypertension Past Surgical History: Angioplasty, Other Alcohol Use: None Drug Use: None General Adult EDM: Chief Complaint: LACERATION/AVULSION HPI: HPI: Patient is a 65-year-old male presents with avulsion to his left, middle finger. Patient states he cut it on a piece of tile at work. Patient is on blood thinners. Bleeding is controlled. Patient is history of diabetes. Unknown last tetanus. Review of Systems: Review of Systems: Constitutional: Denies fever or chills Eyes: Denies change in visual acuity HENT: Denies nasal congestion or sore throat Respiratory: Denies cough or shortness of breath Cardiovascular: Denies chest pain or edema GI: Denies abdominal pain, nausea, vomiting, bloody stools or diarrhea : Denies dysuria Musculoskeletal: Denies back pain or joint pain Integument: Avulsion to left, middle finger Neurologic: Denies headache, focal weakness or sensory changes Endocrine: Denies polyuria or polydipsia Lymphatic: Denies swollen glands Psychiatric: Denies depression or anxiety Allergies: Allergies: Allergies Coded Allergies Type Severity Reaction Last Updated Verified No Known Drug Allergies 05/30/16 No Physical Exam: PE: Constitutional: Well developed, well nourished, no acute distress, non-toxic appearance. [] HENT: Normocephalic, atraumatic, bilateral external ears normal, oropharynx purvi st, no oral exudates, nose normal. [] Eyes: PERRLA, EOMI, conjunctiva normal, no discharge. [] Neck: Normal range of motion, no tenderness, supple, no stridor. [] Cardiovascular:Heart rate regular rhythm, no murmur [] Lungs & Thorax: Bilateral breath sounds clear to auscultation [] Abdomen: Bowel sounds normal, soft, no tenderness, no masses, no pulsatile masses. [] Skin: Avulsion, left middle finger. Bleeding controlled. Full range of motion. Back: No tenderness, no CVA tenderness. [] Extremities: No tenderness, no cyanosis, no clubbing, ROM intact, no edema. [] Neurologic: Alert and oriented X 3, normal motor function, normal sensory function, no focal deficits noted. [] Psychologic: Affect normal, judgement normal, mood normal. [] EKG: EKG: [] Radiology/Procedures: Radiology/Procedures: [] Heart Score: C/O Chest Pain: No Risk Factors: Risk Factors: DM, Current or recent (<one month) smoker, HTN, HLP, family history of CAD, obesity. Risk Scores: Score 0 - 3: 2.5% MACE over next 6 weeks - Discharge Home Score 4 - 6: 20.3% MACE over next 6 weeks - Admit for Clinical Observation Score 7 - 10: 72.7% MACE over next 6 weeks - Early Invasive Strategies Course & Med Decision Making: Course & Med Decision Making Pertinent Labs and Imaging studies reviewed. (See chart for details) [] 65-year-old male presents with an avulsion to his left, middle finger. Patient reports he cut his finger on a piece of tile at work. Patient is on blood thinners due to history of NC. Bleeding is controlled. Unknown last tetanus. Patient also has history of diabetes. Patient reports pain 3/10. Patient is holding pressure to his finger. Wound was cleaned. Tetanus given. Cephalexin given. Dragon Disclaimer: Draggisela Disclaimer: This electronic medical record was generated, in whole or in part, using a voice recognition dictation system. Departure Departure: Impression: Primary Impression: Laceration Disposition: HOME / SELF CARE / HOMELESS Condition: STABLE Referrals: MAREK CASTILLO MD (PCP) Patient Instructions: Laceration Care, Adult, [id number] Additional Instructions: You were seen in the emergency room for laceration to your fingertip. Tetanus was given. Sending you home with antibiotics. Keep the wound clean, covered, dry. Return emergency room if you have any signs of infection. EMERGENCY DEPARTMENT GENERAL DISCHARGE INSTRUCTIONS Thank you for coming to [facility] (ED) today and trusting us with you care. We trust that you had a positivie experience in our Emergency Department. If you wish to speak to the department management, you may call the director at [phone]. YOUR FOLLOW UP INSTRUCTIONS ARE FOLLOWS: 1. Do you have a private Doctor? If you do not have a private doctor, please ask for a resource list of physicians or clinics that may be able to assist you with follow up care. 2. The Emergency Physician has interpreted your x-rays. The X-Ray specialist will also review them. If there is a change in the findings, you will be notified in 48 hours when at all possible. 3. A lab test or culture has been done, your results will be reviewed and you will be notified if you need a change in treatment. ADDITIONAL INSTRUCTIONS AND INFORMATION: 1. Your care today has been supervised by a physician who is specially trained in emergency care. Many problems require more than one evaluation for a complete diagnosis and treatment. We recommend that you schedule your follow up appointment as recommended to ensure complete treatment of you illness or injury. If you are unable to obtain follow up care and continue to have a problem, or if your condition worsens, we recommend that you return to the ED. 2. We are not able to safely determine your condition over the phone nor are we able to give sound medical advice over the phone. For these safety reasons, if you call for medical advice we will ask you to come to the ED for further evaluation. 3. If you have any questions regarding these discharge instructions please call the ED at [phone]. SAFETY INFORMATION: In the interest of safety, wellness, and injury prevention; we encourage you to wear your sealbelt, if you smoke; quite smoking, and we encourage family to use a protective helmet for bicycling and other sporting events that present an increased risk for head injury. IF YOUR SYMPTOMS WORSEN OR NEW SYMPTOMS DEVELOP, OR YOU HAVE CONCERNS ABOUT YOUR CONDITION; OR IF YOUR CONDITION WORSENS WHILE YOU ARE WAITING FOR YOUR FOLLOW UP APPOINTMENT; EITHER CONTACT YOUR PRIMARY CARE DOCTOR, THE PHYSICIAN WHOSE NAME AND NUMBER YOU WERE GIVEN, OR RETURN TO THE ED IMMEDIATELY. Scripts Cephalexin (CEPHALEXIN) 500 Mg Tablet 1 TAB PO BID for infection for 5 Days, #10 TAB Prov: BEN MENDEZ APRN 09/19/20 BEN MENDEZ APRN Sep 19, 2020 13:06
[2020-09-19] MEDS ORDERED: DIPH,PERTUSS(ACELL),TET VAC/PF 0.5 ML SYRINGE. VAX IM ONE (13:15)
[2020-09-19] MEDS ORDERED: ACETAMINOPHEN 500 MG TABLET PO ONE (13:15)
[2020-09-19] MEDS ORDERED: GELATIN SPONGE SIZE 12-7MM SPONGE. ONE (14:08)
[2020-09-19] MEDS ORDERED: GELATIN SPONGE SIZE 12-7MM SPONGE. TP ONE (14:15)
== END 2020-09-19 14:20 | disposition home or self-care (01) ==
LOC: ER 12:14
DX: S61.213A Laceration without foreign body of left middle finger without damage to nail, initial encounter (principal); I25.10 Atherosclerotic heart disease of native coronary artery without angina pectoris; E11.9 Type 2 diabetes mellitus without complications; E78.00 Pure hypercholesterolemia, unspecified; I11.9 Hypertensive heart disease without heart failure; Z98.61 Coronary angioplasty status; W26.8XXA Contact with other sharp object(s), not elsewhere classified, initial encounter; Y93.89 Activity, other specified; Y92.89 Other specified places as the place of occurrence of the external cause; Y99.8 Other external cause status
CPT/HCPCS: 90471; 90715; 99283